=== PATIENT | female | born 1995 | race Caucasian/White ===

== ENCOUNTER 2019-03-06 01:05 | Emergency (ER) | payer OTHER ==
[~2019-03-06] VITALS: Ht 165.1 cm; Wt 72.7 kg
[2019-03-06] MEDS ORDERED: YAZ1TAB PO (01:12)
[2019-03-06 02:19] VITALS: BP 122/88
== END 2019-03-06 02:22 | disposition home or self-care (01) ==
LOC: M ED 01:05
DX: R30.0 Dysuria (principal); R35.8 Other polyuria; Z79.899 Other long term (current) drug therapy

== ENCOUNTER 2019-03-10 15:26 | Emergency (ER) | payer OTHER ==
[~2019-03-10] VITALS: Ht 165.1 cm; Wt 73.3 kg
[~2019-03-10 15:26] MED LIST: YAZ1TAB PO
[2019-03-10 15:27] VITALS: BP 110/65
[2019-03-10 16:01] LABS: APPEARANCE, URINE CLOUDY (CLEAR); BACTERIA, URINE AUTO 2+ (NEGATIVE); BILIRUBIN, URINE AUTO NEGATIVE (NEGATIVE); BLOOD, URINE BLOOD 3+ (NEGATIVE); COLOR, URINE YELLOW (YELLOW); GLUCOSE, URINE (UA) AUTO NEGATIVE (NEGATIVE); KETONE, URINE AUTO NEGATIVE (NEGATIVE); LEUKOCYTE ESTERASE, URINE AUTO 3+ (NEGATIVE); NITRITE, URINE AUTO NEGATIVE (NEGATIVE); PROTEIN, URINE AUTO 1+ mg/dL (NEGATIVE); RBC, URINE AUTO 38 /HPF (0-3); SPECIFIC GRAVITY URINE AUTO 1.003 (1.002-1.035); SQUAMOUS EPITHELIAL CELL UR AU 0 /HPF (0-6); UROBILINOGEN, URINE AUTO 0.2 mg/dL (0.0-2.0); WBC, URINE AUTO TNTC /HPF (0-3)
[2019-03-10] MEDS ORDERED: PYRI1TAB5 PO (16:11)
[2019-03-10] MEDS ORDERED: MACR100C43 PO (16:11)
[2019-03-10 17:43] LABS: CHLAMYDIA DNA AMPLIFICATION NEGATIVE (NEGATIVE); GC DNA AMPLIFICATION NEGATIVE (NEGATIVE)
== END 2019-03-10 16:16 | disposition home or self-care (01) ==
LOC: M ED 15:26
DX: N30.00 Acute cystitis without hematuria (principal); N39.0 Urinary tract infection, site not specified

== ENCOUNTER 2019-04-19 10:48 | Emergency (ER) | payer OTHER ==
[~2019-04-19] VITALS: Ht 165.1 cm; Wt 70.1 kg
[~2019-04-19 10:48] MED LIST changes: +MACR100C43 PO; +PYRI1TAB5 PO
[2019-04-19] MEDS: ONDANSETRON 4 MG ORAL DISINTEGRATING TAB (Q0162 PER 1MG) PO ONE (11:38)
[2019-04-19] MEDS: METOCLOPRAMIDE INJ 10MG/2ML VIAL (J2765) IV ONE (12:55)
[2019-04-19] MEDS: NS 1,000 ML IV ONE (12:55)
[2019-04-19] MEDS ORDERED: ONDA4TAB6 PO (13:30)
[2019-04-19 14:03] VITALS: BP 116/58
== END 2019-04-19 14:05 | disposition home or self-care (01) ==
LOC: M ED 10:48
DX: R11.2 Nausea with vomiting, unspecified (principal); R19.7 Diarrhea, unspecified
CPT/HCPCS: 80047; 84702; 96374; 99284; J2765; Q0162

== ENCOUNTER 2019-07-23 13:31 | Emergency (ER) | payer OTHER ==
[~2019-07-23] VITALS: Ht 165.1 cm; Wt 79.2 kg
[~2019-07-23 13:31] MED LIST changes: +ONDA4TAB6 PO
[2019-07-23 13:59] LABS: URINE PREG TEST NEGATIVE (NEGATIVE)
[2019-07-23 14:38] LABS: BASO % 0.6 % (0.0-1.0); EOS # 0.1 10^3/uL (0.0-0.5); EOS % 0.8 % (0.0-3.0); HEMATOCRIT 38.9 % (36.0-47.0); LYMPH # 1.5 10^3/uL (1.5-5.0); LYMPH % 23.1 % (24.0-44.0); MEAN CORPUSCULAR HEMOGLOBIN 28.1 pg (27.0-33.0); MEAN CORPUSCULAR HGB CONC 33.4 g/dl (32.0-36.5); MEAN CORPUSCULAR VOLUME 84.2 fl (80.0-96.0); MONO # 0.6 10^3/uL (0.0-0.8); MONO % 9.4 % (0.0-5.0); NEUTROPHILS # 4.2 10^3/uL (1.5-8.5); NEUTROPHILS % 65.9 % (36.0-66.0); PLATELET COUNT, AUTOMATED 192 10^3/uL (150-450); RED BLOOD COUNT 4.62 10^6/uL (4.00-5.40); WHITE BLOOD COUNT 6.4 10^3/uL (4.0-10.0)
[2019-07-23] MEDS ORDERED: MACR100C43 PO (14:44)
[2019-07-23] MEDS ORDERED: PYRI1TAB5 PO (14:44)
[2019-07-23 14:51] VITALS: BP 123/72
== END 2019-07-23 15:05 | disposition home or self-care (01) ==
LOC: M ED 13:31
DX: N39.0 Urinary tract infection, site not specified (principal); R10.9 Unspecified abdominal pain; R30.0 Dysuria; R31.29 Other microscopic hematuria

== ENCOUNTER 2019-09-27 07:08 | Emergency (ER) | payer OTHER ==
[2019-11-04 12:27] LABS: APPEARANCE, URINE HAZY (CLEAR); BACTERIA, URINE AUTO NEGATIVE (NEGATIVE); BILIRUBIN, URINE AUTO NEGATIVE (NEGATIVE); BLOOD, URINE BLOOD NEGATIVE (NEGATIVE); COLOR, URINE YELLOW (YELLOW); GLUCOSE, URINE (UA) AUTO NEGATIVE (NEGATIVE); KETONE, URINE AUTO NEGATIVE (NEGATIVE); LEUKOCYTE ESTERASE, URINE AUTO TRACE (NEGATIVE); MUCUS, URINE SMALL (NEGATIVE); NITRITE, URINE AUTO NEGATIVE (NEGATIVE); PROTEIN, URINE AUTO NEGATIVE (NEGATIVE); RBC, URINE AUTO 2 /HPF (0-3); SPECIFIC GRAVITY URINE AUTO 1.024 (1.002-1.035); SQUAMOUS EPITHELIAL CELL UR AU 1 /HPF (0-6); WBC, URINE AUTO 1 /HPF (0-3)
[2019-12-07 11:59] LABS: HCG, SERUM QUALITATIVE POSITIVE (NEGATIVE)
== END 2019-09-27 10:30 | disposition home or self-care (01) ==
LOC: M ED 07:08
DX: Z32.01 Encounter for pregnancy test, result positive (principal); M54.5 Low back pain

== ENCOUNTER 2019-09-29 23:31 | Emergency (ER) | payer OTHER ==
[2019-11-15 14:03] LABS: APPEARANCE, URINE CLEAR (CLEAR); BACTERIA, URINE AUTO NEGATIVE (NEGATIVE); BILIRUBIN, URINE AUTO NEGATIVE (NEGATIVE); BLOOD, URINE BLOOD 3+ (NEGATIVE); COLOR, URINE YELLOW (YELLOW); GLUCOSE, URINE (UA) AUTO NEGATIVE (NEGATIVE); KETONE, URINE AUTO 1+ mg/dL (NEGATIVE); LEUKOCYTE ESTERASE, URINE AUTO TRACE (NEGATIVE); MUCUS, URINE SMALL (NEGATIVE); NITRITE, URINE AUTO NEGATIVE (NEGATIVE); PROTEIN, URINE AUTO NEGATIVE (NEGATIVE); RBC, URINE AUTO 31 /HPF (0-3); SPECIFIC GRAVITY URINE AUTO 1.019 (1.002-1.035); SQUAMOUS EPITHELIAL CELL UR AU 1 /HPF (0-6); UROBILINOGEN, URINE AUTO 0.2 mg/dL (0.0-2.0); WBC, URINE AUTO 9 /HPF (0-3)
== END 2019-09-30 02:35 | disposition home or self-care (01) ==
LOC: M ED 23:31
DX: O03.4 Incomplete spontaneous abortion without complication (principal)

== ENCOUNTER 2020-05-29 13:47 | Emergency (ER) | payer OTHER ==
[~2020-05-29] VITALS: Ht 165.1 cm; Wt 74.5 kg
[2020-05-29] MEDS ORDERED: KETOROLAC TROMETHAMINE 10 MG TAB PO ONE (15:40)
[2020-05-29 16:01] VITALS: BP 106/71
[2020-05-29] MEDS ORDERED: ROBA750T4 PO (18:04)
== END 2020-05-29 16:02 | disposition home or self-care (01) ==
LOC: M ED 13:47
DX: M54.9 Dorsalgia, unspecified (principal)

== ENCOUNTER → 2020-06-23 | Outpatient (REF) ==
[~2020-06-23] MED LIST changes: +ROBA750T4 PO
== END ==
LOC: M LABSMTC 13:58
PROVIDERS: ATTEND Pediatrics
DX: Z11.52 Encounter for screening for COVID-19 (principal)

== ENCOUNTER → 2020-12-15 | Outpatient (REF) ==
[~2020-12-15] MED LIST changes: +DOXY1CAP62 PO; +KETO10TAB PO
== END ==
LOC: M EMP 10:15
PROVIDERS: ATTEND Family Medicine
DX: Z11.52 Encounter for screening for COVID-19 (principal)

== ENCOUNTER 2021-05-29 10:36 | Emergency (ER) | payer OTHER ==
[~2021-05-29] VITALS: Ht 165.1 cm; Wt 80.3 kg
[~2021-05-29 10:36] MED LIST changes: +DOXY-443 PO; -DOXY1CAP62 PO
[2021-05-29 10:37] VITALS: BP 127/73
[2021-05-29] MEDS ORDERED: ACET-683 PO (11:30)
== END 2021-05-29 12:42 | disposition home or self-care (01) ==
LOC: M ED 10:36
DX: U07.1 COVID-19 (principal); F17.200 Nicotine dependence, unspecified, uncomplicated

== ENCOUNTER → 2024-08-31 | Outpatient (RCR) ==
[~2024-08-31] MED LIST changes: +ACET-683 PO; +DOXY-441 PO; -DOXY-443 PO; +ONDA-282 PO; -ONDA4TAB6 PO
== END ==
LOC: M EMPSKH 08-06 14:31 → M EMPSSV 08-06 14:31
PROVIDERS: ATTEND Family Medicine
DX: Z11.52 Encounter for screening for COVID-19 (principal)